=== PATIENT | female | born 1985 | race Caucasian/White ===

== ENCOUNTER 2023-06-15 20:25 | Inpatient (IN) | payer MEDICAID, OTHER ==
[~2023-06-15] VITALS: Ht 154.9 cm; Wt 80.7 kg
[2023-06-15 20:26] VITALS: O2SAT 98
[2023-06-15 21:11] LABS: BASOPHILS % 0.2 % (0.0-2.0); EOSINOPHILS % 0.5 % (0.0-5.0); HEMATOCRIT. 40.2 % (36.0-48.0); HEMOGLOBIN. 12.7 g/dL (12.0-16.0); LYMPHOCYTES % 8.7 % (20.0-50.0); MEAN CORPUSCULAR HEMOGLOBIN 29.2 pg (28.0-32.0); MEAN CORPUSCULAR HGB CONC 31.5 g/dL (31.0-37.0); MEAN CORPUSCULAR VOLUME 92.7 fL (81.0-99.0); MEAN PLATELET VOLUME 9.9 fl (7.4-10.4); MONOCYTES % 3.2 % (2.0-8.0); NEUTROPHILS % 87.4 % (40.0-76.0); PLATELET 318 x1000/uL (130-400); RED BLOOD CELL COUNT 4.34 mill/uL (4.2-5.4); RED CELL DISTRIBUTION WIDTH 14.2 % (11.6-14.6); WHITE BLOOD COUNT 13.5 x1000/uL (4.5-11.0)
[2023-06-15 21:13] LABS: CHLORIDE 108 mEq/L (98-107); INDEX HEMOLYSI 1 (1-3); INDEX ICTERIC 1 (1-4); INDEX LIPEMIC 1 (1-3); POTASSIUM 3.4 mEq/L (3.5-5.1); SODIUM 136 mEq/L (136-145)
[2023-06-15 21:21] LABS: ALANINE AMINOTRANSFERASE 59 IU/L (13-61); ALBUMIN 3.4 g/dL (3.4-5.0); ASPARTATE AMINOTRANSFERASE 27 IU/L (15-37); BILIRUBIN TOTAL 0.3 mg/dL (0.1-1.0); CALCIUM 8.5 mg/dL (8.5-10.1); CARBON DIOXIDE 17 mEq/L (21-32); CREATININE 0.7 mg/dL (0.6-1.3); GLUCOSE 126 mg/dL (70-105); PROTEIN TOTAL 8.2 g/dL (6.0-8.3); UREA NITROGEN BLOOD 8 mg/dL (7-21)
[2023-06-15] MEDS ORDERED: MORPHINE SULFATE 4 MG/ML CPJ (NOT FOR IM USE) IV STA (22:19)
[2023-06-15] MEDS ORDERED: ONDANSETRON HCL 4MG/2ML INJ IV STA (22:19)
[2023-06-15] MEDS ORDERED: FAMOTIDINE 20MG/2ML VIAL IV STA (22:19)
[2023-06-15] MEDS ORDERED: SODIUM CHLORIDE 0.9% 1,000 ML IV ONE (22:30)
[2023-06-15 23:58] LABS: HCG SCREEN NEGATIVE
[2023-06-16 00:20] LABS: LACTIC ACID 2.4 mmol/L (0.4-2.0)
[2023-06-16 00:32] LABS: CLARITY URINE TURBID (CLEAR); COLOR URINE DARK YELLOW (YELLOW); GLUCOSE URINE NEGATIVE (NEGATIVE); KETONES URINE 2+ (NEGATIVE); LEUKOCYTE ESTERASE URINE NEGATIVE (NEGATIVE); NITRITE URINE NEGATIVE (NEGATIVE); OCCULT BLOOD URINE 3+ (NEGATIVE); PH URINE 5.5 (4.5-8.0); PROTEIN URINE 1+ (NEGATIVE); SPECIFIC GRAVITY URINE 1.034 (1.005-1.030); UROBILINOGEN URINE 0.2 E.U./dL (0.2-1.0)
[2023-06-16] MEDS ORDERED: IOHEXOL-300 100 ML BOTTLE ONE (00:44)
[2023-06-16] MEDS ORDERED: ONDANSETRON HCL 4MG/2ML INJ IV STA (03:55)
[2023-06-16] MEDS ORDERED: MORPHINE SULFATE 4 MG/ML CPJ (NOT FOR IM USE) IV STA (03:55)
[2023-06-16] MEDS ORDERED: SODIUM CHLORIDE 0.9% 1,000 ML IV ONE (04:00)
[2023-06-16] MEDS ORDERED: PIPERACILLIN/TAZ 3.375G PREMIX 50 ML IV ONE (04:00)
[2023-06-16] MEDS ORDERED: GUAIFENESIN 200MG/10ML SUGAR FREE UDC PO PRN (05:15)
[2023-06-16] MEDS ORDERED: ONDANSETRON HCL 4MG/2ML INJ IV PRN ×2 (05:15→10:00)
[2023-06-16] MEDS ORDERED: CLONIDINE 0.1MG TABLET PO PRN (05:15)
[2023-06-16] MEDS ORDERED: ACETAMINOPHEN 325MG TABLET PO PRN ×2 (05:15)
[2023-06-16] MEDS ORDERED: IPRATROPIUM/ALBUTEROL 0.5-3(2.5)MG/3ML NEB HHN PRN (05:15)
[2023-06-16] MEDS ORDERED: LORAZEPAM 0.5MG TABLET PO PRN (05:15)
[2023-06-16] MEDS ORDERED: ZOLPIDEM TARTRATE 5MG TABLET PO PRN (05:15)
[2023-06-16 05:30] VITALS: BP 132/69; PULSE 62; RESP 18; TEMP 97
[2023-06-16] MEDS ORDERED: MORPHINE SULFATE 2 MG/ML CPJ (NOT FOR IM USE) IV PRN ×2 (06:00→10:00)
[2023-06-16 06:04] LABS: AMORPHOUS SEDIMENT URINE 2+ /lpf; WBC URINE NONE SEEN /hpf (0-2)
[2023-06-16 06:05] LABS: BACTERIA URINE NONE SEEN; RBC URINE 0-2 /hpf (0-2); SQUAMOUS EPITHELIAL CELL URINE FEW /lpf (RARE/1+)
[2023-06-16 08:00] VITALS: BP 105/66; PULSE 60; RESP 18; TEMP 98.1
[2023-06-16] MEDS ORDERED: SKIN ADHESIVE 0.7 GM EA TOP ONE (08:00)
[2023-06-16] MEDS ORDERED: BUPIVACAINE HCL/PF 0.5% (5MG/ML) 10ML ONE ×2 (08:00→08:19)
[2023-06-16] MEDS ORDERED: SUCCINYLCHOLINE CHLORIDE 200MG/10ML IV ONE (08:44)
[2023-06-16] MEDS ORDERED: ROCURONIUM BROMIDE 10MG/ML VIAL 5ML IV ONE (08:44)
[2023-06-16] MEDS ORDERED: PROPOFOL 200MG/20ML VIAL IV ONE (08:44)
[2023-06-16] MEDS ORDERED: MIDAZOLAM HCL 2 MG/2 ML VIAL ONE (08:45)
[2023-06-16] MEDS ORDERED: FENTANYL CITRATE/PF 50MCG/ML 2ML VIAL ONE (08:45)
[2023-06-16] MEDS ORDERED: CEFTRIAXONE 1GM PREMIX 50 ML IV SCH (09:00)
[2023-06-16] MEDS ORDERED: METRONIDAZOLE 500 MG PREMIX 100 ML IV SCH (09:00)
[2023-06-16] MEDS ORDERED: NEOSTIGMINE METHYLSULFATE 1MG/ML 10 ML VIAL ONE (09:46)
[2023-06-16] MEDS ORDERED: GLYCOPYRROLATE 0.2 MG/ML 2ML VIAL ONE (09:46)
[2023-06-16] MEDS ORDERED: HYDROCODONE/ACETAMINOPHEN 5/325MG TABLET PO PRN ×2 (10:00)
[2023-06-16] MEDS: METRONIDAZOLE 500 MG PREMIX 100 ML IV SCH ×2 (10:00→17:13)
[2023-06-16] MEDS ORDERED: NALOXONE HCL 0.4MG/ML VIAL IV PRN (10:00)
[2023-06-16] MEDS ORDERED: MEPERIDINE HCL/PF 25MG/ML CPJ IV PRN (10:15)
[2023-06-16] MEDS ORDERED: HYDROMORPHONE HCL/PF 2MG/ML CPJ IV PRN (10:15)
[2023-06-16 16:00] VITALS: BP 100/53; PULSE 68; RESP 19; TEMP 96.9
[2023-06-16] MEDS: CEFTRIAXONE 1,000 MG in DEXTROSE 5% WATER 50 ML IV SCH (16:18)
[2023-06-16 19:00] LABS: INDEX HEMOLYSI 1 (1-3)
[2023-06-16 19:09] LABS: CREATINE KINASE 239 IU/L (26-192)
[2023-06-16 19:14] LABS: T4 FREE 1.18 ng/dL (0.76-1.46); THYROID STIMULATING HORMONE 0.43 uIU/mL (0.36-3.74); TROPONIN I HIGH SENSITIVITY < 4 ng/L (<54)
[2023-06-16 19:27] LABS: VITAMIN B12 SERUM 630 pg/mL (211-911)
[2023-06-16 20:00] VITALS: BP 110/56; PULSE 77; RESP 20; TEMP 98.6
[2023-06-16] MEDS: DEXT 5%/0.45% NACL KCL 20MEQ/L 1,000 ML IV SCH ×2 (21:18→21:23)
[2023-06-17] VITALS: BP 105/57; PULSE 67; RESP 20; TEMP 97.9
[2023-06-17 01:37] LABS: INDEX HEMOLYSI 1 (1-3)
[2023-06-17 01:44] LABS: CREATINE KINASE 296 IU/L (26-192); CREATINE KINASE MB FRACTION 2.1 ng/mL (0.5-3.6); TROPONIN I HIGH SENSITIVITY 4 ng/L (<54)
[2023-06-17] MEDS: METRONIDAZOLE 500 MG PREMIX 100 ML IV SCH ×2 (02:57→10:54)
[2023-06-17 04:00] VITALS: BP 122/55; PULSE 60; RESP 20; TEMP 97.5
[2023-06-17 06:31] LABS: HEMATOCRIT 30.9 % (36.0-48.0); HEMOGLOBIN 10.2 g/dL (12.0-16.0); MEAN CORPUSCULAR HEMOGLOBIN 29.6 pg (28.0-32.0); MEAN CORPUSCULAR HGB CONC 33.1 g/dL (31.0-37.0); MEAN CORPUSCULAR VOLUME 89.3 fL (81.0-99.0); PLATELET 261 x1000/uL (130-400); RED BLOOD CELL COUNT 3.46 mill/uL (4.2-5.4); RED CELL DISTRIBUTION WIDTH 13.4 % (11.6-14.6); WHITE BLOOD COUNT 11.6 x1000/uL (4.5-11.0)
[2023-06-17 07:06] LABS: CALCIUM 7.6 mg/dL (8.5-10.1); CARBON DIOXIDE 24 mEq/L (21-32); CHLORIDE 108 mEq/L (98-107); GLUCOSE 104 mg/dL (70-105); INDEX HEMOLYSI 1 (1-3); INDEX ICTERIC 1 (1-4); INDEX LIPEMIC 1 (1-3); POTASSIUM 2.9 mEq/L (3.5-5.1); SODIUM 139 mEq/L (136-145); UREA NITROGEN BLOOD 6 mg/dL (7-21)
[2023-06-17 07:09] LABS: CREATININE 0.6 mg/dL (0.6-1.3); PHOSPHORUS 1.6 mg/dL (2.5-4.9)
[2023-06-17 08:00] VITALS: BP 115/57; PULSE 76; RESP 20; TEMP 97.8
[2023-06-17] MEDS: CEFTRIAXONE 1,000 MG in DEXTROSE 5% WATER 50 ML IV SCH (09:23)
[2023-06-17] MEDS ORDERED: POTASSIUM PHOS,M-BASIC-D-BASIC 20 MMOL in DEXT 5% WATER 243.3333 ML IV SCH (10:00)
[2023-06-17 12:00] VITALS: BP 120/63; PULSE 84; RESP 18; TEMP 97.1
[2023-06-17 14:32] LABS: PHOSPHORUS 1.5 mg/dL (2.5-4.9)
[2023-06-17] MEDS ORDERED: POTASSIUM-SODIUM PHOSPHATE POWDER PACKET PO NR (15:30)
[2023-06-17 16:00] VITALS: BP 122/62; PULSE 72; RESP 18; TEMP 97.9
[2023-06-17 16:52] VITALS: BP 120/64; PULSE 78; TEMP 97.8
== END 2023-06-17 19:02 | disposition home or self-care (01) | DRG 342 ==
LOC: ER 20:25 → MICUSO 06-16 04:34 → EDBEDREQ 06-16 04:37 → 6EST 06-16 07:48
PROVIDERS: ADMIT Internal Medicine; ATTEND Internal Medicine
PROC: 0DTJ4ZZ Resection of Appendix, Percutaneous Endoscopic Approach (ICD-10-PCS; principal; 2023-06-16)
DX: K35.80 Unspecified acute appendicitis (principal); E87.20 Acidosis, unspecified; E87.6 Hypokalemia; J45.909 Unspecified asthma, uncomplicated; N83.209 Unspecified ovarian cyst, unspecified side; R73.9 Hyperglycemia, unspecified
CPT/HCPCS: 36415; 74177; 80048; 80053; 80061; 81003; 82550; 82553; 82607; 82746; 83036; 83540; 83550; 83605; 83735; 84100; 84132; 84439; 84443; 84484; 84703; 85025; 85027; 88304; 93005; 93970; 99285; J0330; J0696; J2175; J2250; J2270; J2405; J2543; J2704; J2710; J3010; J3490; J7030; J7060; Q9967